=== PATIENT | female | born 1970 | race American Indian/Alaskan Native ===

== ENCOUNTER 2022-07-06 06:57 | Emergency (ER) | payer MEDICARE ==
--- NOTE | 2022-07-06 08:21 | XRay Report ---
LEFT TOE(S) 3 VIEW(S) INDICATION / CLINICAL INFORMATION: PAIN COMPARISON: None available. FINDINGS: BONES / JOINT(S): Dorsal dislocation of the distal phalanx of the third toe, with an adjacent small o ssific fragment just proximally favoring a small chip type fracture. Slight lateral angulation of th e distal aspect of the dislocated distal phalanx. SOFT TISSUES: Soft tissue swelling at the third toe. ADDITIONAL FINDINGS: None. IMPRESSION: 1. Third toe DIP joint dislocation further detailed above, with associated suspected small chip type fracture. Signer Name: Luis Benson MD Signed: 07/06/2022 8:17 AM Workstation Name: [id number]
[2022-07-06] MEDS ORDERED: LIDOCAINE (2%) 20 MG/1 ML VIAL 20 ML MDV INFILTRATI STA (09:43)
--- NOTE | 2022-07-06 10:36 | Emergency Department Report ---
ED Lower Extremity HPI - General Chief Complaint: Extremity Injury, Lower Stated Complaint: LT TOE INJURY Time Seen by Provider: 07/06/22 09:30 Source: patient Mode of arrival: Ambulatory Limitations: No Limitations - History of Present Illness Initial Comments: WAS RUNNING TO THE POOLS AND WHEN GOT OUT NOTICED TOE WAS THROBBING AND POINTING THE WRONG DIRECTION. PAIN IS DULL AND THROBBING WITH WORSENING ON PALPATION AND MOVEMENT MD Complaint: foot injury -: Gradual Injury: Toes: Left Place: home Severity: mild Improves With: nothing Worsens With: nothing Other Symptoms: loss of consciousness Associated Symptoms: snap/pop sensation, able to partially bear weight, ambulatory - Related Data Home Medications Medication Instructions Recorded Confirmed Last Taken Adalimumab 40 mg SUB-Q QWEEK 04/12/19 04/12/19 04/08/19 Dapagliflozin Propanediol 5 mg PO DAILY 04/12/19 04/12/19 04/11/19 Folic Acid 1 mg PO DAILY 04/12/19 04/12/19 04/11/19 Glimepiride 1 tab PO DAILY 04/12/19 04/12/19 04/11/19 Losartan-Hctz 100-25 mg Tab 1 tab PO DAILY 04/12/19 04/12/19 04/11/19 Methotrexate 2.5 mg PO QWEEK 04/12/19 04/12/19 04/08/19 Metoprolol 200 mg PO DAILY 04/12/19 04/12/19 04/11/19 Omeprazole 20 mg PO DAILY 04/12/19 04/12/19 04/11/19 Prednisone 1 mg PO DAILY 04/12/19 04/12/19 04/11/19 Spironolactone 25 mg PO DAILY 04/12/19 04/12/19 04/11/19 amLODIPine 5 mg PO DAILY 04/12/19 04/12/19 04/11/19 sulfADIAZINE 500 mg PO BID 04/12/19 04/12/19 04/11/19 Previous Rx's Medication Instructions Recorded Last Taken Type Ketorolac [Toradol] 10 mg PO Q6H PRN #14 07/06/22 Unknown Rx Allergies Allergy/AdvReac Type Severity Reaction Status Date / Time codeine Allergy Rash Verified 12/16/21 00:53 lisinopril Allergy BAD COUGH Verified 12/16/21 00:53 ED Review of Systems ROS: Stated complaint: LT TOE INJURY Other details as noted in HPI Comment: All other systems reviewed and negative ED Past Medical Hx - Past Medical History Hx Hypertension: Yes Hx Diabetes: Yes Hx GERD: Yes - Surgical History Additional Surgical History: C SECTION/GASTRIC - Social History Smoking Status: Former Smoker - Medications Home Medications: Home Medications Medication Instructions Recorded Confirmed Last Taken Type Adalimumab 40 mg SUB-Q QWEEK 04/12/19 04/12/19 04/08/19 History Dapagliflozin Propanediol 5 mg PO DAILY 04/12/19 04/12/19 04/11/19 History Folic Acid 1 mg PO DAILY 04/12/19 04/12/19 04/11/19 History Glimepiride 1 tab PO DAILY 04/12/19 04/12/19 04/11/19 History Losartan-Hctz 100-25 mg Tab 1 tab PO DAILY 04/12/19 04/12/19 04/11/19 History Methotrexate 2.5 mg PO QWEEK 04/12/19 04/12/19 04/08/19 History Metoprolol 200 mg PO DAILY 04/12/19 04/12/19 04/11/19 History Omeprazole 20 mg PO DAILY 04/12/19 04/12/19 04/11/19 History Prednisone 1 mg PO DAILY 04/12/19 04/12/19 04/11/19 History Spironolactone 25 mg PO DAILY 04/12/19 04/12/19 04/11/19 History amLODIPine 5 mg PO DAILY 04/12/19 04/12/19 04/11/19 History sulfADIAZINE 500 mg PO BID 04/12/19 04/12/19 04/11/19 History Ketorolac [Toradol] 10 mg PO Q6H PRN #14 07/06/22 Unknown Rx ED Physical Exam - General Limitations: No Limitations General appearance: alert, in no apparent distress - Head Head exam: Present: atraumatic, normocephalic - Eye Eye exam: Present: normal appearance - ENT ENT exam: Present: mucous membranes moist - Neck Neck exam: Present: normal inspection - Respiratory Respiratory exam: Present: normal lung sounds bilaterally. Absent: respiratory distress - Cardiovascular Cardiovascular Exam: Present: regular rate, normal rhythm. Absent: systolic murmur, diastolic murmur, rubs, gallop - GI/Abdominal GI/Abdominal exam: Present: soft, normal bowel sounds - Extremities Exam Extremities exam: Present: normal inspection, tenderness, normal capillary refill, other (3RD TOE DEFROMITY ) - Back Exam Back exam: Present: normal inspection - Neurological Exam Neurological exam: Present: alert, oriented X3, CN II-XII intact, normal gait - Psychiatric Psychiatric exam: Present: normal affect, normal mood - Skin Skin exam: Present: warm, dry, intact, normal color. Absent: rash ED Course Vital Signs 07/06/22 07:26 Temperature 98.8 F Pulse Rate 64 Respiratory 20 Rate Blood Pressure 139/79 O2 Sat by Pulse 98 Oximetry - Orthopedic Joint Reduction Joint #1 Consent Obtained: verbal consent Time Out Performed: Yes Side: left Joint Reduction Location: toe Analgesia: digital block Local Anesthetic Used: Lidocaine 2% Technique Used: direct manipulation Post-Reduction Vascular Exam: intact Post Reduction X-Ray Obtained: Yes Post Reduction X-Ray Results: reduced Splint Applied: Yes Patient Tolerated Procedure: well Critical care attestation.: If time is entered above; I have spent that time in minutes in the direct care of this critically ill patient, excluding procedure time. ED Disposition Clinical Impression: Dislocation of toe, left, closed Disposition: 01 HOME / SELF CARE / HOMELESS Is pt being admited?: No Does the pt Need Aspirin: No Condition: Stable Instructions: Toe Dislocation, Avulsion Fracture of the Foot Additional Instructions: KEEP TOES TAPED FOR 1 WEEK Prescriptions: Ketorolac [Toradol] 10 mg PO Q6H PRN #14 PRN Reason: Pain Referrals: PRIMARY CARE, [Primary Care Provider] - 3-5 Days
--- NOTE | 2022-07-06 10:45 | XRay Report ---
LEFT FOOT 1 VIEW(S) INDICATION / CLINICAL INFORMATION: post reduction COMPARISON: None available. FINDINGS: BONES / JOINT(S): Apparent interval reduction of third digit DIP joint dislocation by limited single view technique. Small fragment along the lateral distal aspect of the middle phalanx may reflect sequ elae of previous described probable small chip type fracture. No significant arthritis. SOFT TISSUES: No significant abnormality. ADDITIONAL FINDINGS: None. IMPRESSION: 1. Apparent interval reduction of DIP third digit fracture by limited single view technique. Signer Name: Luis Benson MD Signed: 07/06/2022 10:41 AM Workstation Name: [email or web address]
[2022-07-06 10:47] VITALS: BP 156/61
== END 2022-07-06 10:47 | disposition home or self-care (01) ==
LOC: ED 06:57
DX: S93.115A Dislocation of interphalangeal joint of left lesser toe(s), initial encounter (principal); I10 Essential (primary) hypertension; E11.9 Type 2 diabetes mellitus without complications; K21.9 Gastro-esophageal reflux disease without esophagitis; Z87.891 Personal history of nicotine dependence; Z91.09 Other allergy status, other than to drugs and biological substances; X58.XXXA Exposure to other specified factors, initial encounter; Y93.89 Activity, other specified; Y92.89 Other specified places as the place of occurrence of the external cause; Y99.8 Other external cause status
CPT/HCPCS: 99283; J3490